=== PATIENT | male | born 1960 | race Caucasian/White ===

== ENCOUNTER 2016-11-23 12:36 | Emergency (ER) | payer OTHER ==
[~2016-11-23] VITALS: Ht 180.3 cm; Wt 104.3 kg
--- NOTE | 2016-11-23 13:48 | ED GI/GU/ABDOMINAL COMPLAINT ---
History of Present Illness General Chief Complaint: Abdominal Pain/Flank Pain Stated Complaint: ABD BLOATING Source: patient, family, old records Exam Limitations: no limitations Vital Signs & Intake/Output Vital Signs & Intake/Output Vital Signs Date Time Temp Pulse Resp B/P Pulse O2 O2 Flow FiO2 Ox Delivery Rate 11/23 1650 96.1 68 16 156/93 99 Room Air 11/23 1425 79 18 137/80 98 Room Air 11/23 1240 97.1 105 16 189/91 98 Allergies Coded Allergies: NO KNOWN ALLERGIES (11/23/16) Reconcile Medications Insulin Aspart, Recombinant (Novolog Flexpen) (Unknown Strength) INSULN.PEN ( Unknown Dose) SEE SLIDING SCALE DM (Reported) Insulin Detemir (Levemir) 100 UNIT/ML VIAL 60 U SC DAILY DM (Reported) Levothyroxine Sodium 175 MCG TABLET 1 TAB PO DAILY AC THYROID (Reported) Lisinopril 40 MG TABLET 1 TAB PO DAILY HEART (Reported) Metformin HCl 500 MG TABLET 1 TAB PO BID DM (Reported) Simvastatin (Simvastatin*) 40 MG TABLET 1 TAB PO QPM CHOLESTEROL (Reported) Triage Note: PT STATES HE HAS BEEN GETTING BLOATING FOR THE PAST 3 WEEKS. PT REPORTS THIS HAPPENS ANY TIME HE EATS EVEN IF ITS A SMALL MEAL. Triage Nurses Notes Reviewed? yes HPI: Patient presents with increasing early CAD and abdominal distention over the past few weeks. Patient states he eats a small meal and then feels full and the little while later his abdomen is distended. He denies any nausea or vomiting. Denies any diarrhea. Patient states it is similar episode approximately 2 years ago and it was determined that he had H. pylori so is treated for that and then felt better but then the symptoms came back. Patient denies any pain. Past History Travel History Traveled to [place] past 21 day No Medical History Any Pertinent Medical History? see below for history Cardiovascular: hypertension, hyperlipidemia Endocrine: diabetes, hypothyroidism Surgical History Surgical History: non-contributory Psychosocial History What is your primary language Trinidadian Tobacco Use: Current Daily Use Daily Tobacco Use Amount/Type: => 5 Cigarettes daily ETOH Use: occasional use Illicit Drug Use: denies illicit drug use Family History Hx Contributory? No Review of Systems Review of Systems Constitutional: Reports: no symptoms. EENTM: Reports: no symptoms. Respiratory: Reports: no symptoms. Cardiovascular: Reports: no symptoms. GI: Reports: see HPI, bloating. Genitourinary: Reports: no symptoms. Musculoskeletal: Reports: no symptoms. Skin: Reports: no symptoms. Neurological/Psychological: Reports: no symptoms. Hematologic/Endocrine: Reports: no symptoms. Immunologic/Allergic: Reports: no symptoms. All Other Systems: Reviewed and Negative Physical Exam Physical Exam General Appearance: well developed/nourished, alert, awake, mild distress Head: atraumatic, normal appearance Eyes: Bilateral: PERRL, EOMI. Ears, Nose, Throat, Mouth: hearing grossly normal, moist mucous membrane Neck: normal inspection, supple, full range of motion Respiratory: normal breath sounds, chest non-tender, no respiratory distress, lungs clear Cardiovascular: regular rate/rhythm, normal peripheral pulses Gastrointestinal: normal bowel sounds, soft, non-tender Back: normal inspection, normal range of motion Extremities: normal range of motion Neurologic/Psych: no motor/sensory deficits, awake, alert, normal gait Core Measures ACS in differential dx? No Severe Sepsis Present: No Septic Shock Present: No Progress Differential Diagnosis: appendicitis, biliary colic, colon cancer, cholecystitis , diverticulitis, gastritis, hepatitis, ischemic bowel, inflamm bowel dis, PUD/ GERD Plan of Care: Orders Procedure Date/time Status TROPONIN LEVEL 11/23 140 Complete LIPASE 11/23 140 Complete COMPREHENSIVE METABOLIC PANEL 11/23 140 Complete CBC WITHOUT DIFFERENTIAL 11/23 1405 Complete AMYLASE 11/23 140 Complete EKG 11/23 140 Active Laboratory Tests 11/23/16 1500: Anion Gap 6, Estimated GFR > 60, BUN/Creatinine Ratio 16.3, Glucose 228 H, Calcium 9.6, Total Bilirubin 0.7, AST 34, ALT 42, Alkaline Phosphatase 52, Troponin I < 0.01, Total Protein 7.1, Albumin 4.3, Globulin 2.8, Albumin/ Globulin Ratio 1.5, Amylase 38, Lipase 123, RBC 4.30 L, MCV 93.4, MCH 31.6 H, RDW 13.2, MPV 8.4, Gran % 58.3, Lymphocytes % 32.3, Monocytes % 7.6, Eosinophils % 1.3, Basophils % 0.5, Absolute Granulocytes 2.3, Absolute Lymphocytes 1.3, Absolute Monocytes 0.3, Absolute Eosinophils 0.1, Absolute Basophils 0, PUBS MCHC 33.9 Diagnostic Imaging: Viewed by Me: CT Scan. Discussed w/RAD: CT Scan. Radiology Impression: PATIENT: MAJOR THOMASON PRESENT AGE: 56 PATIENT ACCOUNT NO: [id number] : 56 LOCATION: [facility] ORDERING PHYSICIAN: JOSE GARCIA MD SERVICE DATE: 11/23/16 EXAM TYPE: CAT - CT ABD & PELVIS W IV CONTRAST EXAMINATION: CT ABDOMEN AND PELVIS WITH CONTRAST CLINICAL INFORMATION: Right lower quadrant pain. COMPARISON: CT scan abdomen pelvis 09/16/2013 TECHNIQUE: Multidetector volumetric imaging was performed of the abdomen and pelvis after the IV administration of 95 mL of Optiray 320 intravenous contrast. Sagittal and coronal reformatted images were obtained on the technologist's workstation. DLP: 828.8 mGy-cm FINDINGS: LUNG BASES: The visualized lung bases are unremarkable. LIVER, GALLBLADDER, AND BILIARY TREE: The liver is normal in size, shape, and attenuation. No focal hepatic lesion or biliary ductal dilatation is present. The gallbladder is unremarkable with no evidence of radiopaque gallstones, gallbladder wall thickening, or obvious pericholecystic inflammatory changes. PANCREAS: Unremarkable. SPLEEN: Unremarkable. ADRENAL GLANDS: Unremarkable. KIDNEYS AND URETERS: The kidneys are normal in size, shape, and attenuation. No hydronephrosis, hydroureter, or calculi seen. No perinephric stranding. BLADDER: Unremarkable. GASTROINTESTINAL TRACT: The small and large bowel are unremarkable. The appendix is unremarkable. ABDOMINAL WALL: No significant hernia is appreciated. LYMPH NODES: Normal. VASCULAR: Unremarkable. PELVIC VISCERA: Unremarkable. OSSEOUS STRUCTURES: Degenerative spurs at the endplates of the thoracic and lumbar vertebrae. IMPRESSION: No acute abnormality CT scan abdomen and pelvis. Normal appendix. DICTATED BY: KEN SALAS MD DATE/TIME DICTATED:11/23/161645 AIRCRAFT ENGINE TECHNICIAN:ISAIAH DATE/TIME TRANSCRIBED:1645 CONFIDENTIAL, DO NOT COPY WITHOUT APPROPRIATE AUTHORIZATION. < Electronically signed in Other Vendor System> SIGNED BY: KEN SALAS MD [id number] Initial ED EKG: NSR, no ST T wave changes Departure Departure Disposition: HOME OR SELF CARE Condition: Stable Clinical Impression Primary Impression: Upper abdominal pain, unspecified Referrals: ELVIN ROTH,MALOU Gordillo (PCP/Family) ELA ROTH,ELÍAS Mejía Additional Instructions: RETURN IF SYMPTOMS WORSEN OR FOR ANY CONCERNS Do not take your metformin for the next 2 days. Follow-up with Dr. Horner to have a repeat blood work for her kidney function as long as that is normal but need to resume your metformin. Departure Forms: Customer Survey General Discharge Information
[2016-11-23] MEDS ORDERED: LEVEMIR100 UNIT/1 SC (13:58)
[2016-11-23] MEDS ORDERED: LEVOTHYROXINE175 MCG PO (13:59)
[2016-11-23] MEDS ORDERED: NOVOLOG FL100 UNIT/1 (13:59)
[2016-11-23] MEDS ORDERED: LISINOPRIL40 M1 PO (14:00)
[2016-11-23] MEDS ORDERED: SIMVASTATIN40 M1 PO (14:00)
[2016-11-23] MEDS ORDERED: METFORMIN HCL500 M3 PO (14:00)
[2016-11-23 15:32] LABS: ABSOLUTE BASOPHIL COUNT 0 /CUMM (0.0-0.2); ABSOLUTE EOSINOPHIL COUNT 0.1 /CUMM (0.0-0.7); ABSOLUTE GRANULOCYTE CT 2.3 /CUMM (1.4-6.5); ABSOLUTE LYMPH COUNT 1.3 /CUMM (1.2-3.4); ABSOLUTE MONOCYTE COUNT 0.3 /CUMM (0.10-0.60); BASOPHIL % 0.5 % (0.0-2.0); EOSINOPHIL % 1.3 % (0-5); GRANULOCYTE % 58.3 % (42.2-75.2); HEMATOCRIT 40.2 % (42-52); MEAN CORPUSCULAR HGB 31.6 PG (27.0-31.0); MEAN CORPUSCULAR HGB CONC 33.9 G/DL (33.0-37.0); MEAN CORPUSCULAR VOLUME 93.4 FL (80.0-94.0); MEAN PLATELET VOLUME 8.4 FL (7.4-10.4); PLATELET COUNT 154 /CUMM (130-400); RBC DISTRIBUTION WIDTH 13.2 % (11.5-14.5); WHITE BLOOD CELL COUNT 3.9 /CUMM (4.8-10.8)
[2016-11-23 16:50] VITALS: BP 156/93
--- NOTE | 2016-11-23 16:54 | CT SCAN REPORT ---
EXAMINATION: CT ABDOMEN AND PELVIS WITH CONTRAST CLINICAL INFORMATION: Right lower quadrant pain. COMPARISON: CT scan abdomen pelvis 09/16/2013 TECHNIQUE: Multidetector volumetric imaging was performed of the abdomen and pelvis after the IV administration of 95 mL of Optiray 320 intravenous contrast. Sagittal and coronal reformatted images were obtained on the technologist's workstation. DLP: 828.8 mGy-cm FINDINGS: LUNG BASES: The visualized lung bases are unremarkable. LIVER, GALLBLADDER, AND BILIARY TREE: The liver is normal in size, shape, and attenuation. No focal hepatic lesion or biliary ductal dilatation is present. The gallbladder is unremarkable with no evidence of radiopaque gallstones, gallbladder wall thickening, or obvious pericholecystic inflammatory changes. PANCREAS: Unremarkable. SPLEEN: Unremarkable. ADRENAL GLANDS: Unremarkable. KIDNEYS AND URETERS: The kidneys are normal in size, shape, and attenuation. No hydronephrosis, hydroureter, or calculi seen. No perinephric stranding. BLADDER: Unremarkable. GASTROINTESTINAL TRACT: The small and large bowel are unremarkable. The appendix is unremarkable. ABDOMINAL WALL: No significant hernia is appreciated. LYMPH NODES: Normal. VASCULAR: Unremarkable. PELVIC VISCERA: Unremarkable. OSSEOUS STRUCTURES: Degenerative spurs at the endplates of the thoracic and lumbar vertebrae. IMPRESSION: No acute abnormality CT scan abdomen and pelvis. Normal appendix.
== END 2016-11-23 17:26 ==
LOC: ERH 12:36
PROVIDERS: Emergency Medicine
DX: R10.10 Upper abdominal pain, unspecified (principal)
CPT/HCPCS: 74177; 93005; 93010; 96360; 96361

== ENCOUNTER 2018-05-28 13:31 | Emergency (ER) | payer OTHER ==
[~2018-05-28] VITALS: Ht 180.3 cm; Wt 104.3 kg
[~2018-05-28 13:31] MED LIST: LEVEMIR100 UNIT/1 SC; LEVOTHYROXINE175 MCG PO; LISINOPRIL40 M1 PO; METFORMIN HCL500 M3 PO; NOVOLOG FL100 UNIT/1; SIMVASTATIN40 M1 PO
--- NOTE | 2018-05-28 14:44 | CT SCAN REPORT ---
EXAMINATION: CT HEAD WITHOUT CONTRAST CLINICAL INFORMATION: Double vision. Presumptive diagnosis of intracranial hemorrhage or mass. COMPARISON: CT scan of the head dated 04/21/2007. TECHNIQUE: Contiguous axial imaging was performed from the skull base to vertex without intravenous administration of contrast. DLP: 614.72 mGy-cm FINDINGS: There is no evidence of acute intracranial hemorrhage or territorial infarction. No abnormal mass effect or midline shift is seen. Mares to white matter differentiation is well preserved. No extra-axial fluid collections are identified. The ventricles are normal in size. There is no abnormal attenuation within the brain parenchyma. The osseous structures and soft tissues are normal. The mastoid air cells and visualized portions of the paranasal sinuses are well aerated. IMPRESSION: No acute intracranial pathology.
[2018-05-28 15:09] LABS: ABSOLUTE BASOPHIL COUNT 0 /CUMM (0.0-0.2); ABSOLUTE EOSINOPHIL COUNT 0.1 /CUMM (0.0-0.7); ABSOLUTE GRANULOCYTE CT 2.8 /CUMM (1.4-6.5); ABSOLUTE LYMPH COUNT 1.2 /CUMM (1.2-3.4); ABSOLUTE MONOCYTE COUNT 0.3 /CUMM (0.10-0.60); BASOPHIL % 0.5 % (0.0-2.0); EOSINOPHIL % 1.3 % (0-5); GRANULOCYTE % 63.6 % (42.2-75.2); HEMATOCRIT 41.7 % (42-52); MEAN CORPUSCULAR HGB 32.5 PG (27.0-31.0); MEAN CORPUSCULAR HGB CONC 34.4 G/DL (33.0-37.0); MEAN CORPUSCULAR VOLUME 94.4 FL (80.0-94.0); MEAN PLATELET VOLUME 8.6 FL (7.4-10.4); PLATELET COUNT 161 /CUMM (130-400); RBC DISTRIBUTION WIDTH 13.2 % (11.5-14.5); RED BLOOD CELL CT 4.42 /CUMM (4.70-6.10); WHITE BLOOD CELL COUNT 4.5 /CUMM (4.8-10.8)
[2018-05-28 15:14] LABS: PT 11.8 SEC (9.4-12.5); PTT 27 SEC (25-37)
[2018-05-28] MEDS ORDERED: TRESIBA FL200 UNIT/1 SC (15:32)
[2018-05-28 15:47] VITALS: BP 115/58
--- NOTE | 2018-05-28 15:51 | ED GENERAL ADULT ---
History of Present Illness General Chief Complaint: Eye Problems Stated Complaint: DOUBLE VISION Source: patient Exam Limitations: no limitations Vital Signs & Intake/Output Vital Signs & Intake/Output Vital Signs Date Time Temp Pulse Resp B/P B/P Pulse O2 O2 Flow FiO2 Mean Ox Delivery Rate 05/28 1547 98.7 71 20 115/58 98 Room Air 05/28 1336 97.3 94 20 150/80 96 Room Air Allergies Coded Allergies: NO KNOWN ALLERGIES (11/23/16) Reconcile Medications Insulin Aspart, Recombinant (Novolog Flexpen) (Unknown Strength) INSULN.PEN ( Unknown Dose) SEE SLIDING SCALE DM (Reported) Insulin Degludec (Tresiba Flextouch U-200) 200 UNIT/ML (3 ML) INSULN.PEN 60 UNITS SC DAILY DIABETES (Reported) Levothyroxine Sodium 175 MCG TABLET 1 TAB PO DAILY AC THYROID (Reported) Lisinopril 40 MG TABLET 1 TAB PO DAILY HEART (Reported) Metformin HCl 500 MG TABLET 1 TAB PO BID DM (Reported) Simvastatin (Simvastatin*) 40 MG TABLET 1 TAB PO QPM CHOLESTEROL (Reported) Triage Note: PT TO ED C/O DOUBLE VISION SINCE SUNDAY. WENT TO OPTHAMOLOGIST YESTERDAY, AND WAS TOLD TO F/U WITH NEURO OPTHAMOLOGIST, WHICH PT HAS APPT WITH TOMORROW. HPI: Patient is a 57-year-old male with a past medical history of uncontrolled diabetes type 2, who is presenting with onset of double vision since Sunday. Patient states he does not regularly check his blood sugar levels at home however when he feels his blood sugar levels are high he usually has visual symptoms, upon checking his blood sugar level at home his fasting sugar level was 320. Patient endorses horizontal diplopia, no pain with eye movement, no recent tick bites, no loss of central vision, no floaters. Patient states his vision does improve with use of nonprescription glasses which did not happen today so he became concerned and came to the emergency department. Only corrective head position is when patient would put his chin to the chest and looks up which is not working for the patient anymore. Patient denies any tingling numbness, drooping of one side of his face, one side body weakness, recent infections, nasal discharge. (Mateus ROTH,María) Triage Nurses Notes Reviewed? yes (Miriam ROTH,Mark Sarkar) Past History Travel History Traveled to [place] past 21 day No Medical History Any Pertinent Medical History? see below for history Cardiovascular: hypertension, hyperlipidemia Endocrine: diabetes, hypothyroidism Surgical History Surgical History: non-contributory Psychosocial History What is your primary language German Tobacco Use: Current Daily Use Daily Tobacco Use Amount/Type: => 5 Cigarettes daily ETOH Use: occasional use Illicit Drug Use: denies illicit drug use Family History Hx Contributory? No (María Ignacio MD) Review of Systems Review of Systems Constitutional: Reports: see HPI. (María Ignacio MD) Physical Exam Physical Exam General Appearance: well developed/nourished, no apparent distress Head: atraumatic, normal appearance Eyes: Bilateral: normal appearance, PERRL, EOMI, other (vision corrects w/ closing 1 e ). Ears, Nose, Throat: normal pharynx, normal ENT inspection Comments: Patient has normal vision when he closes one eye. No nystagmus was appreciated, vision intact in all 4 quadrants. (María Ignacio MD) Core Measures ACS in differential dx? No CVA/TIA Diagnosis: No Sepsis Present: No Sepsis Focused Exam Completed? No (Miriam ROTH,Mark Sarkar) Progress Differential Diagnoses I considered the following diagnoses in my evaluation of the patient: CN Palsy Diabetic Neuropathy complication Age related loss of vision CN III Palsy TIA/CVA Myasthenia Gravis Plan of Care: Orders Procedure Date/time Status ED- VISUAL ACUITY 05/28 1339 Active TROPONIN LEVEL 05/28 1339 Complete PARTIAL THROMBOPLASTIN TIME 05/28 1339 Complete PROTHROMBIN TIME 05/28 1339 Complete COMPREHENSIVE METABOLIC PANEL 05/28 1339 Complete CBC WITHOUT DIFFERENTIAL 05/28 1339 Complete EKG 05/28 1339 Active Laboratory Tests 05/28/18 1511: Serum Osmolality Cancelled 05/28/18 1455: Anion Gap 6, Estimated GFR > 60, BUN/Creatinine Ratio 15.6, Glucose 236 H, Calcium 8.9, Total Bilirubin 0.3, AST 27, ALT 27, Alkaline Phosphatase 48, Troponin I < 0.01, Total Protein 6.2 L, Albumin 3.7, Globulin 2.5, Albumin/ Globulin Ratio 1.5, PT 11.8, INR 1.08, APTT 27, CBC w Diff NO MAN DIFF REQ, RBC 4.42 L, MCV 94.4 H, MCH 32.5 H, MCHC 34.4, RDW 13.2, MPV 8.6, Gran % 63.6, Lymphocytes % 27.3, Monocytes % 7.3, Eosinophils % 1.3, Basophils % 0.5, Absolute Granulocytes 2.8, Absolute Lymphocytes 1.2, Absolute Monocytes 0.3, Absolute Eosinophils 0.1, Absolute Basophils 0 Initial ED EKG: normal axis, normal QRS complex, normal sinus rhythm (Mateus ROTH,María) Comments: 05/28/2018 5:15:17 PM patient's case discussed with Dr. Bui who agrees that the patient should follow-up with his neuro-ophthalmologic appointment as scheduled tomorrow. There appears to be no other emergent or urgent intervention necessary at this time. (Miriam ROTH,Mark Sarkar) Departure Departure Condition: Stable Referrals: Siri ROTH,Hussein Gordillo (PCP/Family) Departure Forms: Customer Survey General Discharge Information (María Ignacio MD) Departure Disposition: HOME OR SELF CARE Clinical Impression Primary Impression: Diplopia Additional Instructions: The cause of your double vision is unclear at this point. Please follow-up with the neuro personal trainer as scheduled tomorrow. Notify your primary care physician of this emergency department visit and treatment plan. If necessary please follow-up with Dr. Gustafson (neurologist) after your appointment tomorrow. Return if any sudden worsening or other concerns. (Miriam ROTH,Mark Sarkar) Critical Care Note Critical Care Note Critical Care Time: non-applicable (Mark Pineda MD)
== END 2018-05-28 17:43 ==
LOC: ERH 13:31
PROVIDERS: Physician Assistant Medical
DX: H53.2 Diplopia (principal); E11.9 Type 2 diabetes mellitus without complications; E03.9 Hypothyroidism, unspecified; I10 Essential (primary) hypertension; F17.210 Nicotine dependence, cigarettes, uncomplicated; Z79.4 Long term (current) use of insulin
CPT/HCPCS: 93005; 93010